=== PATIENT | female | born 1950 | race Caucasian/White ===

== ENCOUNTER → 2018-11-06 | Day surgery (SDC) | payer MEDICARE ==
[2018-11-05 17:26] LABS: BASOPHILS % 0.8 % (0.0-1.0); EOSINOPHILS % 0.8 % (0.0-6.0); HEMATOCRIT 31.4 % (34.2-44.1); HEMOGLOBIN 10.4 g/dL (12.0-16.0); LYMPHOCYTES # (AUTO) 0.7 (1.0-3.2); LYMPHOCYTES % 15.5 % (18.0-39.1); MEAN CORPUSCULAR HEMOGLOBIN 31.8 pg (28-32); MEAN CORPUSCULAR HGB CONC 33.1 g/dL (31-35); MONOCYTES # (AUTO) 0.3 (0.2-0.8); MONOCYTES % 5.3 % (4.4-11.3); NEUTROPHILS # (AUTO) 3.6 (2.1-6.9); NEUTROPHILS % 75.3 % (38.7-80.0); PLATELET COUNT 171 x10e3/uL (140-360); RED BLOOD COUNT 3.27 x10e6/uL (3.6-5.1); RED CELL DISTRIBUTION WIDTH 14.5 % (11.7-14.4)
[2018-11-05 17:46] LABS: ALBUMIN 3.5 g/dL (3.5-5.0); ANION GAP 15.3 mmol/L (8-16); CALCIUM 9.7 mg/dL (8.4-10.2); CREATININE, SERUM 1.66 mg/dL (0.57-1.11); POTASSIUM 4.3 mmol/L (3.5-5.1)
[2018-11-05 20:34] LABS: PLATELET ESTIMATE ADEQUATE; PLATELET MORPHOLOGY COMMENT NORMAL; RBC MORPHOLOGY COMMENT NORMAL
[2018-11-06] VITALS (7 sets, daily range): BP systolic 121–125; BP diastolic 45–52
[~2018-11-06] VITALS: Ht 157.5 cm; Wt 70.8 kg
[~2018-11-06] MED LIST: ALLOPURINOL100 MG PO; ASPIR 8181 MG PO; BYETTA10 MCG/0.0 SC; DIGOXIN125 MCG PO; FENTANYL CITRATE/PF 100MCG/2 ML INJ ONE; FUROSEMIDE40 MG PO; GABAPENTIN300 MG PO; GEMFIBROZIL600 MG PO; HEPARIN SOD (PORCINE) 1000 UNIT/ML 30ML ONE; HEPARIN SOD/SOD CHLORIDE 2,000 ML ONE; HUMALOG100 UNIT/3 SC; IOPAMIDOL 300MG/ML 100 ML INFUS..BTL IV ONE; IOPAMIDOL 370 MG/ML 200 ML INFUS..BTL INJ ONE; LEVEMIR100 UNIT/1 SC; LEVOTHYROXINE50 MCG PO; LIDOCAINE HCL 2% LOCAL 20 ML VIAL ONE; LISINOPRIL10 MG PO; LORATADINE10 MG PO; METOPROLOL SUCC25 MG PO; MIDAZOLAM HCL 2 MG/2 ML VIAL ONE; MIRTAZAPINE15 MG PO; MULTI-VITAMIN1 EACH PO; NEXIUM40 MG PO; ROPINIROLE HCL1 MG PO; SODIUM CHLORIDE 0.9% 1000ML 1,000 ML ONE; TICAGRELOR 90 MG TABLET ONE; VERAPAMIL HCL 2.5 MG/ML 2 ML VIAL ONE; vascepa PO
--- NOTE | 2018-11-06 12:45 | NUR ---
Received to [facility] recovery room 9. A, A, O x3, VSS, denies pain, gauze dressing with tegaderm to left groin without s&s of hematoma or bleeding. Twan. DPs 2+, twan. PTs present via doppler. No complaints, will continue to monitor.
--- NOTE | 2018-11-06 13:05 | NUR ---
BRILINTA 180 MG PO GIVEN AT ORDERED BY DR. PALMER.
--- NOTE | 2018-11-06 14:24 | NUR ---
Written and verbal D/C instructions given, patient and spouse verbalize understanding. IV D/C'd per protocol, VSS.
--- NOTE | 2018-11-06 16:18 | Operative Report ---
DATE OF PROCEDURE: 11/06/2018 SURGEON: Kenan Jeff MD CARDIAC LAYOUT ARTIST PROCEDURE NOTE INDICATION: 1. Coronary artery disease, unstable angina. 2. Peripheral arterial disease, claudication of the right lower extremity. PROCEDURES PERFORMED: 1. Left heart catheterization, selective coronary angiography. 2. Abdominal aortogram with bilateral lower extremity angiograms. 3. Selective placement of the catheter from the left femoral artery. The right superficial femoral artery (third-order) with unilateral extremity angiogram. 4. Additional third-order catheter placement from the left femoral artery of the right anterior tibial artery. 5. Atherectomy and angioplasty of the right anterior tibial artery. 6. Atherectomy and angioplasty of the right femoral artery. 7. Secondary thrombectomy of the right femoral artery. 8. Deployment of left groin Perclose. COMPLICATIONS: None. RECOMMENDATIONS: Dual antiplatelet therapy for at least three months. DESCRIPTION OF PROCEDURE: Access was obtained in the left femoral artery, a 6-Citizen [place] sheath was placed. Diagnostic coronary angiogram revealed mild coronary artery disease of 10% to 30% luminal stenosis diffusely. No critical stenosis or occlusion is noted. No intervention was deemed necessary. Abdominal aortogram demonstrated plaque in the abdominal aorta, calcification without significant stenosis. Occlusions in the aorta and iliac. Proximal femoral arteries are patent. Distal vessel was not seen on the right side. The catheter was then in the left femoral artery to the right superficial femoral artery confirming 80% stenosis. The distal right superficial femoral artery and infrapopliteal vessels were not well seen. The catheter was then advanced in the left femoral artery. The right anterior tibial artery confirming complete occlusion of the mid right anterior tibial artery with two-vessel runoff. A decision was made to intervene on the femoral and anterior tibial arteries. The patient received heparin for anticoagulation. The sheath was exchanged to a 6-Citizen [place] 45 cm sheath, advanced in the left femoral artery to the right superficial femoral artery. The lesions were crossed using a Glidewire. The wire was replaced with a ViperWire for which orbital atherectomy of the anterior tibial as well as the femoral arteries were performed. Balloon angioplasty with 3 mm balloon on the anterior tibial artery and 6 mm drug-coated balloon in the right popliteal artery with large partially visible thrombus necessitating manual aspiration thrombectomy. Excellent three vessel runoff was noted. Left carotid sheath, left groin, left leg angiogram demonstrated mild peripheral arterial disease without need for intervention. Left groin Perclose was applied. The patient was discharged home same day. MD ADRIANE Beard/JOSE MIGUEL /[id number]
== END | disposition home or self-care (01) ==
LOC: CATH LAB 11:00
PROVIDERS: ATTEND Internal Medicine Interventional Cardiology
DX: I25.110 Atherosclerotic heart disease of native coronary artery with unstable angina pectoris (principal); I70.211 Atherosclerosis of native arteries of extremities with intermittent claudication, right leg; I11.0 Hypertensive heart disease with heart failure; I50.9 Heart failure, unspecified; E78.49 Other hyperlipidemia; E11.9 Type 2 diabetes mellitus without complications; Z01.812 Encounter for preprocedural laboratory examination; Z79.899 Other long term (current) drug therapy; Z79.82 Long term (current) use of aspirin; Z79.4 Long term (current) use of insulin; Z82.49 Family history of ischemic heart disease and other diseases of the circulatory system
CPT/HCPCS: 36415; 37186; 37225; 37229; 75625; 75716; 80053; 85025; 93458; C1724; C1725 ×3; C1769 ×2; C1887 ×2; J1644; J2001; J2250; J7030; Q9967 ×2; 36247

== ENCOUNTER → 2019-11-13 | Outpatient (CLI) | payer MEDICARE, OTHER ==
[~2019-11-13] VITALS: Ht 157.5 cm; Wt 81.6 kg
[~2019-11-13] MED LIST changes: -FENTANYL CITRATE/PF 100MCG/2 ML INJ ONE; -HEPARIN SOD (PORCINE) 1000 UNIT/ML 30ML ONE; -HEPARIN SOD/SOD CHLORIDE 2,000 ML ONE; -IOPAMIDOL 300MG/ML 100 ML INFUS..BTL IV ONE; -IOPAMIDOL 370 MG/ML 200 ML INFUS..BTL INJ ONE; -LIDOCAINE HCL 2% LOCAL 20 ML VIAL ONE; -MIDAZOLAM HCL 2 MG/2 ML VIAL ONE; -SODIUM CHLORIDE 0.9% 1000ML 1,000 ML ONE; -TICAGRELOR 90 MG TABLET ONE; -VERAPAMIL HCL 2.5 MG/ML 2 ML VIAL ONE
[2019-11-13 10:40] LABS: BASOPHILS # (AUTO) 0.1 (0.0-0.1); BASOPHILS % 0.8 % (0.0-1.0); EOSINOPHILS # (AUTO) 0.1 (0.0-0.4); EOSINOPHILS % 1.8 % (0.0-6.0); HEMATOCRIT 35.7 % (34.2-44.1); HEMOGLOBIN 11.2 g/dL (12.0-16.0); LYMPHOCYTES # (AUTO) 0.8 (1.0-3.2); LYMPHOCYTES % 9.5 % (18.0-39.1); MEAN CORPUSCULAR HEMOGLOBIN 30.5 pg (28-32); MEAN CORPUSCULAR HGB CONC 31.4 g/dL (31-35); MEAN CORPUSCULAR VOLUME 97.3 fL (81-99); MONOCYTES # (AUTO) 0.4 (0.2-0.8); MONOCYTES % 5.5 % (4.4-11.3); NEUTROPHILS # (AUTO) 6.5 (2.1-6.9); NEUTROPHILS % 80.9 % (38.7-80.0); PLATELET COUNT 212 x10e3/uL (140-360); RED BLOOD COUNT 3.67 x10e6/uL (3.6-5.1); RED CELL DISTRIBUTION WIDTH 16.2 % (11.7-14.4)
[2019-11-13 11:07] LABS: ALBUMIN 3.8 g/dL (3.5-5.0); ALBUMIN/GLOBULIN RATIO 1.4 (0.8-2.0); ANION GAP 16.4 mmol/L (8-16); CALCIUM 9.8 mg/dL (8.4-10.2); CREATININE, SERUM 1.91 mg/dL (0.57-1.11); POTASSIUM 5.4 mmol/L (3.5-5.1)
--- OUTSIDE RECORDS SUMMARY | 2019-11-19 08:27 | XMS REPORT ---
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 Allergies, Adverse Reactions, Alerts Allergy Name Allergy Type Status Severity Reaction(s) Onset Date Inacti ve Date Treating Clinician Comments No Known Allergies DA Active U 2016-01-12 00:00:00 Medications This patient has no known medications. Results Test Description Test Time Test Comments Text Results Atomic Results Result Comments - XR CHEST 2 V 2019-02-23 09:44:00 FAX: Ted Kilgore DO [phone] [place]: O St: REG -- Name: CHASIDY DENNIS VICKIEMORAIMA [facility] : 1950 Age/S: 69/F [address] [facility] Unit #: [id number] Loc: [place] [address] Phys: Ted Hollingsworth DO Acct: [id number] Dis Date: Status: REG CLI PHONE #: [phone] Exam Date: 02/23/2019918 FAX #: [phone] Reason: SOB EXAMS: CPT CODE: [id number] XR CHEST 2 V 07920 REASON FOR EXAM: SOB Exam Order Date: 02/23/2019 9:14 AM Ordering Tawnya: Ted Hollingsworth DO PROCEDURE: - XR CHEST 2 V COMPARISON: 10/13/2014 FINDINGS: PA and lateral views of the chest show clear lungs without evidence of consolidation. The heart size is mildly enlarged. Pulmonary vasculatures are unremarkable. The osseous structures are grossly intact. IMPRESSION: Mild cardiomegaly, atelectasis of the bases and small bilateral pleural effusions at 0961 Reported and signed by: Vitaliy Pérez M.D. CC: Ted Hollingsworth DO Technologist: HOWARD MCINTYRE(James) Trnscrd Date/Time/By: 02/23/2019 (0981) : By: MarbellaL Orig Print D/T: S: 02/23/2019 (6117) PAGE 1 Signed Report
== END ==
LOC: DX 12:33 → CATH LAB 11-19 08:16 → EDSTATUS 11-19 14:00
PROVIDERS: ATTEND Internal Medicine Interventional Cardiology
DX: Z01.818 Encounter for other preprocedural examination (principal); I25.10 Atherosclerotic heart disease of native coronary artery without angina pectoris
CPT/HCPCS: 36415; 80053; 85025; 87635